=== PATIENT | female | born 1955 | race Caucasian/White ===

== ENCOUNTER 2016-02-20 06:01 | Emergency (ER) | payer OTHER ==
[~2016-02-20] VITALS: Ht 157.5 cm; Wt 73.5 kg
[2016-02-20 06:04] VITALS: TEMP 36.6; Ht 157.5 cm; Wt 73.5 kg
--- NOTE | 2016-02-20 06:43 | EMERGENCY ROOM VISIT NOTE ---
History First contact with patient: 06:26 Chief Complaint: SORETHROAT Stated Complaint: BRONCHIAL ISSUES/SORE THROAT History of Present Illness The patient is a 60 year old female who presents to the Emergency Room with complaints of sore throat Started early Satur morning. Initially the pain was felt in the posteriorly neck but gradually progressed to the point that pain is now felt in the oropharynx, bilateral ears and patient now feels that her glands are painful. It is painful to swallow, but not excessively painful to open her mouth. Pain felt as swelling without radiation. No exacerbation with neck movement. She was felt feverish with chills, but has been unable to measure her temperature. Denies cough, dyspnea, CP, nausea or vomiting, sinus pressure She does have some rhinorrhea, congestion, an intermittently, diffusely aching headache. Some myalgias, but localized to HENT No flu vaccine, as she is allergic to eggs Review of Systems See HPI for pertinent positives and negatives. A total of ten systems were reviewed and were otherwise negative. Social History Smoking Status: Never Smoker Current/Historical Medications Scheduled Lisinopril (Zestril), 5 MG PO DAILY Allergies Coded Allergies: Cefaclor (Verified Allergy, Severe, ANAPHYLAXIS, 02/20/16) Codeine (Verified Allergy, Unknown, RESPIRATORY SX, 02/20/16) Physical Exam Vital Signs Date Time Temp Pulse Resp B/P Pulse Ox O2 Delivery O2 Flow Rate FiO2 02/20/16 06:07 98 Room Air 02/20/16 06:04 36.6 78 18 200/152 98 Room Air Physical Exam GENERAL: alert, well appearing, well nourished, sitting in bed, no acute distress, non-toxic HEAD: Normocephalic, atraumatic. No sinus tenderness. EYES: PERRL, EOMI, normal conjunctiva OROPHARYNX: no exudate, no erythema, lips, buccal mucosa, and tongue normal and mucous membranes are dry EARS: Tympanic membranes within normal limits, no indication of effusion. NECK: supple, no nuchal rigidity, cervical adenopathy present, tender on palpation LUNGS: Clear to auscultation. Normal chest wall mechanics, good air entry. No crepitations, crackles, or wheezes HEART: no murmurs, S1 normal and S2 normal CHEST: No reproducible tenderness. ABDOMEN: abdomen soft, non-tender, normo-active bowel sounds, no masses, no rebound or guarding. BACK: Back is symmetrical on inspection, no deformities, no midline tenderness, no CVA tenderness. SKIN: Warm, pink, dry. No erythema, rashes, or bruising. EXTREMITIES: Grossly normal. Strength 5/5 in all 4 limbs. No pitting edema. Calves non tender. NEURO: Alert, Ox3. No focal deficits. Normal sensorium, cranial nerves II-XII grossly intact, normal speech. PSYCH: Mood and affect appropriate. Medical Decision & Procedures Laboratory Results Test 02/20/16 07:00 Influenza Type A Antigen Neg for Influ A (NEG) Influenza Type B Antigen Neg for Influ B (NEG) Medical Decision 60 year old female presents with sore throat Differential diagnosis includes etiologies such as viral syndrome, tonsillitis, streptococcal pharyngitis, mononucleosis, peritonsillar abscess, retropharyngeal abscess, otitis, pneumonia, influenza, as well as others were entertained. A rapid flu test was negative for influenza A or B. Rapid strep test was also negative Likely symptoms of viral origin. As such patient was recommended that she take Tylenol or Motrin for pain control with lozenges for the throat as needed. Patient understands and agreeable with care plan She was discharged well. Impression Primary Impression: Sore throat (viral) Departure Information Dispostion Home / Self-Care Condition GOOD Referrals No Doctor, Assigned (PCP) Patient Instructions A Signature Page, My [facility]!
[2016-02-20] MEDS ORDERED: LISI-729 PO (07:00)
[2016-02-20 08:14] VITALS: BP 162/81; PULSE 64; O2SAT 96
--- NOTE | 2016-02-20 08:34 | EMERGENCY ROOM VISIT NOTE ---
History Report prepared by Brittny: Lakeisha Muro Under the Supervision of: Dr. Ricardo Chavez D.O. First contact with patient: 06:26 Chief Complaint: SORETHROAT Stated Complaint: BRONCHIAL ISSUES/SORE THROAT History of Present Illness The patient is a 60 year old female who presents to the Emergency Room with complaints of a worsening sore throat that started two days ago. She states that the pain is worse with swallowing and that she is unable to open her mouth completely secondary to the pain. The patient is also experiencing fever, chills , rhinorrhea, sinus congestion, bilateral ear pain, and lymphadenopathy. Source of History: patient Onset: two days ago Position: throat Quality: other (sore throat) Timing: worsening Modifying Factors (Worsening): other (swallowing) Associated Symptoms: + chills, + fevers, + lymphadenopathy Note: rhinorrhea, sinus congestion, bilateral ear pain Review of Systems See HPI for pertinent positives & negatives. A total of 10 systems reviewed and were otherwise negative. Past Medical & Surgical Medical Problems: (1) No pertinent past medical history Family History Family history was reviewed; no changes noted. Social History Smoking Status: Never Smoker Marital Status: Housing Status: lives with family Current/Historical Medications Scheduled Lisinopril (Zestril), 5 MG PO DAILY Allergies Coded Allergies: Cefaclor (Verified Allergy, Severe, ANAPHYLAXIS, 02/20/16) Codeine (Verified Allergy, Unknown, RESPIRATORY SX, 02/20/16) Physical Exam Vital Signs Date Time Temp Pulse Resp B/P Pulse Ox O2 Delivery O2 Flow Rate FiO2 02/20/16 08:14 64 18 162/81 96 Room Air 02/20/16 06:07 98 Room Air 02/20/16 06:04 36.6 78 18 200/152 98 Room Air Physical Exam CONSTITUTIONAL/VITAL SIGNS: Reviewed / noted above. GENERAL: Non-toxic in appearance. INTEGUMENTARY: Warm, dry, and [place]. HEAD: Normocephalic. EYES: without scleral icterus or trauma. ENT/OROPHARYNX: clear and moist. Mild posterior oropharyngeal erythema. LYMPHADENOPATHY/NECK: Is supple without lymphadenopathy or meningismus. RESPIRATORY: Lungs clear and equal. CARDIOVASCULAR: Regular rate and rhythm. GI/ABDOMEN: Soft and nontender. No organomegaly or pulsatile mass. No rebound or guarding. Normal bowel sounds. EXTREMITIES: Warm and well perfused. BACK: No CVA tenderness. NEUROLOGICAL: Intact without focal deficits. PSYCHIATRIC: normal affect. MUSCULOSKELETAL: Normally developed with good muscle tone. Medical Decision & Procedures Laboratory Results Test 02/20/16 07:00 Influenza Type A Antigen Neg for Influ A (NEG) Influenza Type B Antigen Neg for Influ B (NEG) Laboratory results as stated above per my review. ED Course 0630: The medical science liaison evaluated the patient at this time. We discussed her findings and potential treatment plans. 0715: Previous medical records were reviewed. The patient was evaluated in room A12. A complete history and physical examination was performed. 0807: The resident reevaluated the patient. The patient is ready to go home. She discussed the results and findings with the patient. The patient verbalized agreement of the treatment plan. The patient was discharged home. Medical Decision Differential includes viral syndrome, tonsillitis, streptococcal pharyngitis, mononucleosis, peritonsillar abscess, retropharyngeal abscess, otitis, pneumonia , influenza. This is a 60-year-old female who presents to the ED with a chief complaint of a sore throat for the past 2 days. Her exam was relatively unremarkable. She has some posterior oropharyngeal erythema that appears to be mild. There is no exudate or edema. No lymphadenopathy. The tympanic membranes were clear. Lungs were clear. The patient's symptoms are likely viral. She was discharged. Seen with the resident. Impression Primary Impression: Sore throat (viral) Scribe Attestation The scribe's documentation has been prepared under my direction and personally reviewed by me in its entirety. I confirm that the note above accurately reflects all work, treatment, procedures, and medical decision making performed by me. Departure Information Dispostion Home / Self-Care Referrals No Doctor, Assigned (PCP) Forms HOME CARE DOCUMENTATION FORM, IMPORTANT VISIT INFORMATION Patient Instructions A Signature Page, My [facility], Sore Throats Self Care Additional Instructions You were seen in the ED for sore throat. Your nasopharyngeal swabs were negative for influenza and strep throat. It is likely your symptoms are of viral origin. Care involves over the counter medication including Tylenol or Motrin as per box instructions. You may also use lozenges for symptom relief. You have been examined and treated today on an emergency basis only. This is not a substitute for, or an effort to provide, complete comprehensive medical care. It is impossible to recognize and treat all injuries or illnesses in a single emergency department visit. It is therefore important that you make a follow up with your physician for close monitoring. Return for worsening symptoms or if you develop fever, vomiting, or any other concerning symptoms, such as difficulty breathing, pain on opening mouth etc.
== END 2016-02-20 08:34 | disposition home or self-care (01) ==
LOC: C.EDB 06:03 → C.EDA 08:34
DX: J02.8 Acute pharyngitis due to other specified organisms (principal); Z79.899 Other long term (current) drug therapy